=== PATIENT | male | born 1995 | race African-American/Black ===

== ENCOUNTER 2017-10-19 10:37 | Emergency (ER) | payer OTHER ==
[~2017-10-19] VITALS: Ht 185.4 cm; Wt 70.2 kg
[2017-10-19 10:42] VITALS: TEMP 36.8; Ht 185.4 cm; Wt 70.2 kg
[2017-10-19] MEDS ORDERED: ONDANSETRON INJ 2 MG/ML 2 ML VIAL IV STA (10:58)
[2017-10-19] MEDS ORDERED: SODIUM CHLORIDE 0.9% 1000ML 1,000 ML IV STA (10:58)
[2017-10-19 11:07] LABS: BASO % 0.2 %; BASO ABS # 0.01 K/uL (0-0.2); EOS % 1.2 %; EOS ABS # 0.08 K/uL (0-0.5); HEMATOCRIT 47.1 % (42-52); HEMOGLOBIN 16.8 g/dL (14.0-18.0); IG# 0.01 K/uL (0.00-0.02); LYMPH % 19.5 %; LYMPH ABS # 1.26 K/uL (1.2-3.4); MEAN CELL VOLUME 81.3 fL (80-100); MEAN CORPUSCULAR HGB CONC 35.7 g/dl (32-36); MEAN PLATELET VOLUME 9.8 fL (7.4-10.4); MONO % 8.5 %; MONO ABS # 0.55 K/uL (0.11-0.59); NEUT % 70.4 %; NEUT ABS # 4.56 K/uL (1.4-6.5); PLATELET COUNT 200 K/uL (130-400); RED CELL DISTRIBUTION WIDTH CV 12.4 % (11.5-14.5); RED CELL DISTRIBUTION WIDTH SD 36.4 fL (36.4-46.3); WHITE BLOOD COUNT 6.47 K/uL (4.8-10.8)
--- NOTE | 2017-10-19 11:14 | DIAGNOSTIC IMAGING REPORT ---
CHEST ONE VIEW PORTABLE CLINICAL HISTORY: ABDOMINAL PAIN/GI pain COMPARISON STUDY: No previous studies for comparison. FINDINGS: The bones soft tissues and hemidiaphragms are normal. The cardiomediastinal silhouette is normal. The lungs are clear. The pulmonary vasculature is normal. IMPRESSION: Negative chest. The above report was generated using voice recognition software. It may contain grammatical, syntax or spelling errors. Electronically signed by: Glenn Diaz M.D. 10/19/2017 11:12 AM Dictated Date/Time: 10/19/2017 11:12 AM
[2017-10-19 11:23] LABS: ALBUMIN 4.6 gm/dl (3.4-5.0); CALCIUM 9.4 mg/dl (8.5-10.1); CREATININE 1.34 mg/dl (0.60-1.40); POTASSIUM 3.9 mmol/L (3.5-5.1)
[2017-10-19 11:25] LABS: TOTAL PROTEIN 8.3 gm/dl (6.4-8.2)
--- NOTE | 2017-10-19 14:46 | DIAGNOSTIC IMAGING REPORT ---
GALLBLADDER-ABD LIMITED CLINICAL HISTORY: abd pain elevated bilirubin pain. Nausea. TECHNIQUE: Ultrasound COMPARISON STUDY: None FINDINGS: Moderate amount of gallbladder debris/sludge. No shadowing gallstones. Common bile duct 4 mm. Mild fatty infiltration of the liver. Right kidney is negative for hydronephrosis. Pancreas is normal. IMPRESSION: 1. Moderate gallbladder debris. 2. Normal caliber bile ducts. 3. Fatty infiltration of liver. The above report was generated using voice recognition software. It may contain grammatical, syntax or spelling errors. Electronically signed by: Glenn Diaz M.D. 10/19/2017 2:44 PM Dictated Date/Time: 10/19/2017 2:43 PM
--- NOTE | 2017-10-19 14:55 | EMERGENCY ROOM VISIT NOTE ---
History Report prepared by Sarkis[place]luna: Chantal Melendez Under the Supervision of: Dr. Ulysses Abad D.O. 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 The patient is a resident of [facility] since July 2016. [facility] staff reports the patient is refusing to eat or drink. [facility] staff reports the patient's blood pressure is low and he is tachycardic. The patient's blood sugar is 63. The patient notes nausea, though he would not clarify for how long. He notes that he has not been drinking any fluids. The patient reports recent weight loss. He denies any fevers, chest pain, abdominal pain, or leg pain. Source of History: patient, other ([facility] staff) Onset: ACCOUNTING BOOKKEEPER Position: other (global) Quality: other (weakness) Timing: other (persistent) Associated Symptoms: No fevers, No chest pain, No abdominal pain Note: He notes weakness. He denies any leg pain. Review of Systems See HPI for pertinent positives & negatives. A total of 10 systems reviewed and were otherwise negative. Past Medical & Surgical No past medical or past surgical history reported. Family History No pertinent family history reported. Social History Smoking Status: Never Smoker Alcohol Use: none Marital Status: single Housing Status: other ([facility]) Occupation Status: unemployed Current/Historical Medications No Active Prescriptions or Reported Meds Allergies Coded Allergies: No Known Allergies (Unverified , 10/19/17) Physical Exam Vital Signs Date Time Temp Pulse Resp B/P (MAP) Pulse Ox O2 Delivery O2 Flow Rate FiO2 10/19/17 15:05 86 18 120/87 98 10/19/17 13:43 110 18 122/65 99 Room Air 10/19/17 13:36 76 10/19/17 10:53 83 10/19/17 10:42 36.8 126 18 125/77 99 Room Air Physical Exam CONSTITUTIONAL/VITAL SIGNS: Reviewed / noted above. GENERAL: Non-toxic in appearance. INTEGUMENTARY: Warm, dry, and [place]. HEAD: Normocephalic. EYES: without scleral icterus or trauma. ENT/OROPHARYNX: clear and moist. LYMPHADENOPATHY/NECK: Is supple without lymphadenopathy or meningismus. RESPIRATORY: Lungs clear and equal. CARDIOVASCULAR: Regular rate and rhythm. GI/ABDOMEN: Soft and nontender. No organomegaly or pulsatile mass. No rebound or guarding. Normal bowel sounds. EXTREMITIES: Warm and well perfused. BACK: No CVA tenderness. NEUROLOGICAL: Intact without focal deficits. PSYCHIATRIC: normal affect. MUSCULOSKELETAL: Normally developed with good muscle tone. Medical Decision & Procedures ER Provider Diagnostic Interpretation: Radiology results as stated below per my review and radiologist interpretation: CHEST ONE VIEW PORTABLE CLINICAL HISTORY: ABDOMINAL PAIN/GI pain COMPARISON STUDY: No previous studies for comparison. FINDINGS: The bones soft tissues and hemidiaphragms are normal. The cardiomediastinal silhouette is normal. The lungs are clear. The pulmonary vasculature is normal. IMPRESSION: Negative chest. The above report was generated using voice recognition software. It may contain grammatical, syntax or spelling errors. Electronically signed by: Glenn Diaz M.D. 10/19/2017 11:12 AM Dictated Date/Time: 10/19/2017 11:12 AM GALLBLADDER-ABD LIMITED CLINICAL HISTORY: abd pain elevated bilirubin pain. Nausea. TECHNIQUE: Ultrasound COMPARISON STUDY: None FINDINGS: Moderate amount of gallbladder debris/sludge. No shadowing gallstones. Common bile duct 4 mm. Mild fatty infiltration of the liver. Right kidney is negative for hydronephrosis. Pancreas is normal. IMPRESSION: 1. Moderate gallbladder debris. 2. Normal caliber bile ducts. 3. Fatty infiltration of liver. The above report was generated using voice recognition software. It may contain grammatical, syntax or spelling errors. Electronically signed by: Glenn Diaz M.D. 10/19/2017 2:44 PM Dictated Date/Time: 10/19/2017 2:43 PM Laboratory Results 10/19/17 10:50 Red Blood Count 5.79, Mean Corpuscular Volume 81.3, Mean Corpuscular Hemoglobin 29.0, Mean Corpuscular Hemoglobin Concent 35.7, Mean Platelet Volume 9.8, Neutrophils (%) (Auto) 70.4, Lymphocytes (%) (Auto) 19.5, Monocytes (%) (Auto) 8.5, Eosinophils (%) (Auto) 1.2, Basophils (%) (Auto) 0.2, Neutrophils # (Auto) 4.56, Lymphocytes # (Auto) 1.26, Monocytes # (Auto) 0.55, Eosinophils # (Auto) 0.08, Basophils # (Auto) 0.01 10/19/17 10:50 Test 10/19/17 10:43 10/19/17 10:50 10/19/17 13:33 Bedside Glucose 63 mg/dl (70-99) White Blood Count 6.47 K/uL (4.8-10.8) Red Blood Count 5.79 M/uL (4.7-6.1) Hemoglobin 16.8 g/dL (14.0-18.0) Hematocrit 47.1 % (42-52) Mean Corpuscular Volume 81.3 fL (80-100) Mean Corpuscular Hemoglobin 29.0 pg (25-34) Mean Corpuscular Hemoglobin Concent 35.7 g/dl (32-36) Platelet Count 200 K/uL (130-400) Mean Platelet Volume 9.8 fL (7.4-10.4) Neutrophils (%) (Auto) 70.4 % Lymphocytes (%) (Auto) 19.5 % Monocytes (%) (Auto) 8.5 % Eosinophils (%) (Auto) 1.2 % Basophils (%) (Auto) 0.2 % Neutrophils # (Auto) 4.56 K/uL (1.4-6.5) Lymphocytes # (Auto) 1.26 K/uL (1.2-3.4) Monocytes # (Auto) 0.55 K/uL (0.11-0.59) Eosinophils # (Auto) 0.08 K/uL (0-0.5) Basophils # (Auto) 0.01 K/uL (0-0.2) RDW Standard Deviation 36.4 fL (36.4-46.3) RDW Coefficient of Variation 12.4 % (11.5-14.5) Immature Granulocyte % (Auto) 0.2 % Immature Granulocyte # (Auto) 0.01 K/uL (0.00-0.02) Anion Gap 7.0 mmol/L (3-11) Est Creatinine Clear Calc Drug Dose 85.9 ml/min Estimated GFR () 86.5 Estimated GFR (Non- 74.7 BUN/Creatinine Ratio 13.9 (10-20) Calcium Level 9.4 mg/dl (8.5-10.1) Total Bilirubin 4.0 mg/dl (0.2-1) Direct Bilirubin 0.3 mg/dl (0-0.2) Aspartate Amino Transf (AST/SGOT) 14 U/L (15-37) Alanine Aminotransferase (ALT/SGPT) 17 U/L (12-78) Alkaline Phosphatase 58 U/L (45-117) Total Protein 8.3 gm/dl (6.4-8.2) Albumin 4.6 gm/dl (3.4-5.0) Lipase 66 U/L (73-393) Hepatitis B Surface Antigen NEG (NEG) Hepatitis C Antibody NEG (NEG) Laboratory results as stated above per my review. Medications Administered Medications (Trade) Dose Ordered Sig/Paulina Route Start Time Stop Time Status Last Admin Dose Admin Sodium Chloride 1,000 ml @ 999 mls/hr Q1H1M STAT IV 10/19/17 10:58 10/19/17 11:58 DC 10/19/17 11:10 999 MLS/HR Ondansetron HCl (Zofran Inj) 4 mg NOW STAT IV 10/19/17 10:58 10/19/17 11:01 DC 10/19/17 11:13 4 MG ED Course 1049: Previous medical records were reviewed. The patient was evaluated in room C8. A complete history and physical examination was performed. 1058: Ordered Zofran 4 mg IV and Sodium Chloride 1,000 ml @ 999 mls/hr IV 1305: I reassessed the patient at this time. He is resting comfortably. 1454: I reassessed the patient at this time. [] is feeling better and resting comfortably. I discussed the results and treatment plan with the patient[]. I answered all pertaining questions that [] had. [] expressed understanding and verbalized agreement. [The patient will be discharged home.] Medical Decision Differentials include: Acute coronary syndrome, myocardial infarction, CVA, TIA , anemia, infection, pneumonia, UTI, pyelonephritis, poor nutrition, dehydration , electrolyte disturbance, and hypoglycemia. This is a 20-year-old male who presents to the ED with a chief complaint of decreased oral intake. The patient has not been eating or drinking well for the past few days. He was sent in for evaluation. The patient is a poor historian and does not provide much history. His physical exam was unremarkable. Laboratory studies reveals a normal CBC. Complete metabolic panel revealed an elevated bilirubin. Direct bilirubin is normal. The patient denies any history of hepatitis or cirrhosis. Ultrasound of the gallbladder reveals gallbladder sludge. There is no evidence of acute cholecystitis. The patient's isolated total bilirubin level is likely related to an inherited disorder. I do not think it's a cause for acute abdominal symptoms. The patient's hepatitis B&C panel was negative. The patient is felt to be stable for discharge. I did recommend outpatient HIDA scan as follow-up for the gallbladder sludge if any symptoms persist. Clinically, the patient does not appear to have a significant issue with regards to his gallbladder or liver. The patient ate a complete meal including turkey, mashed potatoes and gravy while he was here. He tolerated this well. He also drank fluids without difficulty. He requested that I give him a prescription for medical marijuana and also he wanted a prescription to make the [facility] provide him with extra meals. The patient is felt to be stable for discharge. I do not suspect an acute intra-abdominal process as a cause for the patient's presentation. Medication Reconcilliation Current Medication List: was personally reviewed by me Blood Pressure Screening Patient's blood pressure: Normal blood pressure Impression Primary Impression: Dehydration Scribe Attestation The scribe's documentation has been prepared under my direction and personally reviewed by me in its entirety. I confirm that the note above accurately reflects all work, treatment, procedures, and medical decision making performed by me. Departure Information Dispostion Home / Self-Care Prescriptions No Active Prescriptions or Reported Meds Referrals Refugio RUTHERF[facility] (PCP) Forms HOME CARE DOCUMENTATION FORM, IMPORTANT VISIT INFORMATION, WORK / SCHOOL INSTRUCTIONS Patient Instructions My [facility] Additional Instructions Follow-up with your doctor for further care and evaluation in 1-2 days. Return to the emergency department for worsening or new symptoms or any concerns. You have been examined and treated today on an emergency basis only. This is not a substitute for, or an effort to provide, complete comprehensive medical care. It is impossible to recognize and treat all injuries or illnesses in a single emergency department visit. It is therefore important that you follow up closely with your doctor. Call as soon as possible for an appointment. The bilirubin is elevated. It is felt to be related to an inherited process but further evaluation by a GI specialist might be beneficial. Sludge was found in the gallbladder. If symptoms persist, HIDA scan might be beneficial.
[2017-10-19 15:01] LABS: HEP C IGG 13 YRS+OLDER_RFLX NEG (NEG)
[2017-10-19 15:05] VITALS: BP 120/87; PULSE 86; O2SAT 98
[2017-10-22 07:00] LABS: HEPATITIS A IGM TC 51813E NON-REACTIVE (NON-REACTIVE); HEPATITIS B CORE IGM TC51854R NON-REACTIVE (NON-REACTIVE)
== END 2017-10-19 15:08 ==
LOC: EDBD 10:37 → C.EDC 10:39
DX: E86.0 Dehydration (principal); R63.4 Abnormal weight loss; K83.9 Disease of biliary tract, unspecified; R17 Unspecified jaundice; R11.0 Nausea

== ENCOUNTER → 2018-05-22 | Outpatient (CLI) | payer OTHER ==
[2018-05-22 18:51] LABS: HEP C IGG 13 YRS+OLDER_RFLX NEG (NEG)
== END ==
LOC: C.LABSPEC 17:24
PROVIDERS: ATTEND Family Medicine
DX: Z77.21 Contact with and (suspected) exposure to potentially hazardous body fluids (principal)